=== PATIENT | male | born 1995 | race African-American/Black ===

== ENCOUNTER 2020-10-03 22:54 | Emergency (ER) | payer SELFPAY ==
[~2020-10-03] VITALS: Ht 180.3 cm; Wt 77.3 kg
[2020-10-03] MEDS ORDERED: FAMOTIDINE 20 MG/2 ML VIAL IVP ONE (23:15)
[2020-10-03] MEDS ORDERED: IV NORMAL SALINE 1000ML BAG 1,000 ML IV SCH (23:15)
[2020-10-03] MEDS ORDERED: FAMO-63 PO (23:23)
--- NOTE | 2020-10-03 23:24 | PHYS DOC ---
Past Medical History Past Medical History: Anxiety, Depression Additional Past Medical Histor: COVID 08/2019 Past Surgical History: Other Additional Past Surgical Histo: left leg Smoking Status: Current Every Day Smoker Alcohol Use: Occasionally Drug Use: Marijuana General Adult EDM: Chief Complaint: CHEST PAIN HPI: HPI: Patient is a 24 year old male presents with report of epigastric abdominal discomfort with radiation up into his chest and neck there been ongoing for the past 2 weeks. Patient does report history of anxiety and depression. Patient reports has been weaning himself off of some of his medications recently. Patient reports he has been taking [id number] [place] and stool softeners without improvement of his symptoms. Patient reports googling his symptoms and becoming concerned that he might have some serious disorder. Patient denies any trauma. Denies leg swelling or calf tenderness. Denies history of DVT/PE. Denies fever or chills. Review of Systems: Review of Systems: Constitutional: Denies fever or chills Eyes: Denies redness or eye pain HENT: Denies nasal congestion or sore throat Respiratory: Denies cough or shortness of breath Cardiovascular: Reports chest pain; denies palpitations GI: Reports epigastric abdominal pain; denies nausea or vomiting : Denies dysuria or hematuria Musculoskeletal: Denies back pain or joint pain Integument: Denies rash or skin lesions Neurologic: Denies headache, focal weakness or sensory changes Complete systems were reviewed and found to be within normal limits, except as documented in this note. Heart Score: C/O Chest Pain: Yes HEART Score for Chest Pain: HEART Score for Chest Pain Response (Comments) Value History Slighlty/Non-Suspicious 0 ECG Normal 0 Age < 45 0 Risk Factors 1 or 2 Risk Factors 1 Total 1 Risk Factors: Risk Factors: DM, Current or recent (<one month) smoker, HTN, HLP, family history of CAD, obesity. Risk Scores: Score 0 - 3: 2.5% MACE over next 6 weeks - Discharge Home Score 4 - 6: 20.3% MACE over next 6 weeks - Admit for Clinical Observation Score 7 - 10: 72.7% MACE over next 6 weeks - Early Invasive Strategies Current Medications: Current Medications Medications (Trade) Dose Ordered Sig/Abby Start Time Stop Time Status Last Admin Dose Admin Famotidine (Pepcid Vial) 20 mg 1X ONCE 10/03/20 23:15 5/8/21 23:16 DC Sodium Chloride 1,000 ml @ 1,000 mls/hr Q1H 10/03/20 23:15 10/04/20 00:14 Allergies: Allergies: Allergies Coded Allergies Type Severity Reaction Last Updated Verified No Known Drug Allergies 12/28/14 No Physical Exam: PE: Constitutional: Well developed, well nourished, no acute distress, non-toxic appearance HENT: Normocephalic, atraumatic Eyes: Conjunctiva normal, no discharge Neck: Normal range of motion, supple Lungs & Thorax: No respiratory distress, equal chest rise and fall Abdomen: Soft, mild epigastric tenderness, no guarding/rebound tenderness/distention, negative McBurney, negative Gupta's sign Skin: Warm, dry, no erythema, no rash Extremities: No tenderness, ROM intact, no edema Neurologic: Alert and oriented X 3, no focal deficits noted Psychologic: Affect anxious, judgment normal EKG: EKG: @2256 Sinus bradycardia at 56bpm, NO ST elevation, QRS 88ms, QT/QTc 364/353ms Radiology/Procedures: Radiology/Procedures: PROCEDURE: CHEST PA & LATERAL EXAM: CHEST 2 VIEWS. HISTORY: Chest pain. COMPARISON: 12/28/2014. FINDINGS: Frontal and lateral views of the chest are obtained. There are no confluent infiltrates. There is no pneumothorax or pleural effusion. The heart is not enlarged. IMPRESSION: 1. No confluent infiltrates. Electronically signed by: Isabel Gu MD (10/04/2020 12:13 AM) [facility] Course & Med Decision Making: Course & Med Decision Making Pertinent Labs and Imaging studies reviewed. (See chart for details) Patient presents with atypical chest pain. Low cardiac risk factors. Appears more epigastric in nature. Negative Gupta sign. EKG stable. Labs obtained and posted to chart. LFTs/lipase within normal limits. Troponin also within normal limits. Chest x-ray without acute process. HEART score 1. PERC negative. Patient stable for discharge with outpatient follow-up with PCP/GI. GI referral provided. Discussed findings and plan with patient, who acknowledges understanding and agreement. Fortunato Disclaimer: Fortunato Disclaimer: This electronic medical record was generated, in whole or in part, using a voice recognition dictation system. Departure Departure Impression: Primary Impression: Atypical chest pain Disposition: HOME / SELF CARE / HOMELESS Condition: STABLE Referrals: NO PCP (PCP) IRMA GUY MD Patient Instructions: Anxiety and Panic Attacks, Tdje-wy-Uytk, Chest Pain (Nonspecific), Mxsb-aq-Wfmu, Gastritis, Adult, Znrn-vq-Trhl Scripts Famotidine (PEPCID) 20 Mg Tablet 20 MG PO BID, #20 TAB Prov: RAJWINDER ZAPATA DO 10/03/20 PERC Rule for PE PERC Rule for PE PERC Rule for PE Response (Comments) Value Age > 50: No 0 HR > 100: No 0 Sa02 on room air <95%: No 0 Unilateral leg swelling: No 0 Hemoptysis: No 0 Recent surgery or trauma: No 0 Prior PE or DVT: No 0 Hormone use: No 0 Total 0 RAJWINDER ZAPATA DO October 03, 2020 23:24
[2020-10-03 23:33] LABS: BASO # 0.1 x10^3/uL (0.0-0.2); BASO % 1 % (0-3); EOS % 1 % (0-3); HEMATOCRIT 48.8 % (39.0-53.0); HEMOGLOBIN 16.8 g/dL (13.0-17.5); LYMPH # 2.1 x10^3/uL (1.0-4.8); LYMPH % 37 % (24-48); MEAN CORPUSCULAR HEMOGLOBIN 31 pg (25-35); MEAN CORPUSCULAR HGB CONC 35 g/dL (31-37); MEAN CORPUSCULAR VOLUME 91 fL (79-100); MONO # 0.6 x10^3/uL (0.0-1.1); MONO % 11 % (0-9); NEUT # 2.9 x10^3/uL (1.8-7.7); NEUT % 51 % (31-73); PLATELET COUNT 259 x10^3/uL (140-400); RED BLOOD COUNT 5.36 x10^6/uL (4.30-5.70); RED CELL DISTRIBUTION WIDTH 13.2 % (11.5-14.5); WHITE BLOOD COUNT 5.8 x10^3/uL (4.0-11.0)
[2020-10-04 00:01] LABS: CALCIUM 10.1 mg/dL (8.5-10.1); CREATININE 1.2 mg/dL (0.7-1.3); POTASSIUM 3.8 mmol/L (3.5-5.1)
[2020-10-04 00:05] LABS: ALBUMIN 4.6 g/dL (3.4-5.0); ALBUMIN/GLOBULIN RATIO 1.8 (1.0-1.7); MAGNESIUM 1.9 mg/dL (1.8-2.4); TOTAL BILIRUBIN 0.8 mg/dL (0.2-1.0); TOTAL PROTEIN 7.2 g/dL (6.4-8.2)
[2020-10-04 00:10] LABS: CREATINE KINASE 130 U/L (39-308)
--- NOTE | 2020-10-04 00:15 | RAD ---
EXAM: CHEST 2 VIEWS. HISTORY: Chest pain. COMPARISON: 12/28/2014. FINDINGS: Frontal and lateral views of the chest are obtained. There are no confluent infiltrates. There is no pneumothorax or pleural effusion. The heart is not en larged. IMPRESSION: 1. No confluent infiltrates. Electronically signed by: Isabel Gu MD (10/04/2020 12:13 AM) [facility]
[2020-10-04 00:17] VITALS: BP 141/79
--- NOTE | 2020-10-04 19:01 | EKG ---
[facility] [address] [place] [address] Test Date: 2020-10-03 Test Time: 22:56:40 Pat Name: ARNULFO TRINH Department: Room: Gender: M Commissioning Specialist: : 1995 Requested By: RAJWINDER ZAPATA Order Number: [id number] Reading MD: Measurements Intervals [place] Rate: 56 P: 63 [place]: 168 QRS: 32 QRSD: 88 T: 51 QT: 364 QTc: 353 Interpretive Statements SINUS RHYTHM OTHERWISE NORMAL ECG RI6.02 No previous ECG available for comparison
== END 2020-10-04 00:34 | disposition home or self-care (01) ==
LOC: ER 22:54
DX: R07.89 Other chest pain (principal); R10.13 Epigastric pain; F41.9 Anxiety disorder, unspecified; F32.9 Major depressive disorder, single episode, unspecified; F17.200 Nicotine dependence, unspecified, uncomplicated
CPT/HCPCS: 36415; 71046; 80053; 82553; 83690; 83735; 83880; 84484; 85025; 93005; 96361; 96374; 99285; J3490; J7030

== ENCOUNTER 2021-03-17 16:20 | Emergency (ER) | payer OTHER ==
[~2021-03-17] VITALS: Ht 182.9 cm; Wt 71.0 kg
[~2021-03-17 16:20] MED LIST: FAMO-63 PO
[2021-03-17 18:20] VITALS: BP 143/81
[2021-03-17] MEDS ORDERED: DIPH,PERTUSS(ACELL),TET VAC/PF 0.5 ML SYRINGE. VAX IM ONE (18:30)
[2021-03-17] MEDS ORDERED: LIDOCAINE 1% PF 5 ML VIAL. INJ ONE (18:30)
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
[2021-03-17] MEDS ORDERED: CEPH500C PO (19:05)
[2021-03-17] MEDS ORDERED: SULF1TAB24 PO (19:05)
[2021-03-17] MEDS ORDERED: NEOMY/BACITR/POLYMYXIN OINT PACKET. TP ONE (19:15)
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
== END 2021-03-17 19:27 | disposition home or self-care (01) ==
LOC: EEVIPCON 16:20 → ER 16:20
DX: S51.811A Laceration without foreign body of right forearm, initial encounter (principal); F17.200 Nicotine dependence, unspecified, uncomplicated; W50.3XXA Accidental bite by another person, initial encounter; Y93.89 Activity, other specified; Y92.89 Other specified places as the place of occurrence of the external cause; Y99.8 Other external cause status
CPT/HCPCS: 12001; 73090; 90471; 90715; 99283; J3490

== ENCOUNTER 2021-04-11 07:46 | Emergency (ER) | payer SELFPAY ==
[~2021-04-11] VITALS: Ht 182.9 cm; Wt 72.2 kg
[~2021-04-11 07:46] MED LIST changes: +CEPH500C PO; +SULF1TAB24 PO
[2021-04-11 08:06] VITALS: BP 150/91
--- NOTE | 2021-04-11 08:08 | PHYS DOC ---
Past Medical History Past Medical History: Anxiety, Depression Additional Past Medical Histor: COVID 08/2019 Past Surgical History: Other Additional Past Surgical Histo: left leg Smoking Status: Current Every Day Smoker Alcohol Use: None Drug Use: Marijuana General Adult EDM: Chief Complaint: ANXIETY/PANIC ATTACK HPI: HPI: 25-year-old male past medical history of anxiety, depression tobacco use, presents the ED with his mother, (patient consents to his/her/their knowledge and involvement in pts' medical care), complaints of waking up to his heart beating fast with associated dizziness and chest pain. Patient states he has been having difficulty sleeping and went to bed around 5 or 6 AM. States " I woke up thinking I was going to have a heart attack." Denies any cocaine or meth use. Does smoke tobacco. History of panic attacks and states he ran out of his prescribed medication-uncertain what this medication is. States chest pain is "subsiding," described as tightness. No personal or family history of AAA, AAD, CTD (ehlos danlos or marfans), cardiac arrhythmias (need for AICD), CAD, sudden or unexplainable (under 50 years of age or with exertion), or clotting disorders. Reports history of COVID-19 infection 6 months ago in July 2019. Is not vaccinated for Covid. Review of Systems: Review of Systems: Constitutional: Denies fever or chills. [] Eyes: Denies change in visual acuity. [] HENT: Denies nasal congestion or sore throat. [] Respiratory: Denies cough or shortness of breath. [] Cardiovascular: Denies syncope or edema GI: Denies abdominal pain, nausea, vomiting, bloody stools or diarrhea. [] : Denies dysuria hematuria Musculoskeletal: Denies back pain or joint pain. [] Integument: Denies rash or diaphoresis Neurologic: Denies headache, focal weakness or sensory changes. [] Endocrine: Denies polyuria or polydipsia. [] Lymphatic: Denies swollen glands. [] Psychiatric: Denies depression or suicidal ideations Heart Score: C/O Chest Pain: Yes HEART Score for Chest Pain: HEART Score for Chest Pain Response (Comments) Value History Slighlty/Non-Suspicious 0 ECG Normal 0 Age < 45 0 Risk Factors 1 or 2 Risk Factors 1 Troponin < Normal Limit 0 Total 1 Risk Factors: Risk Factors: DM, Current or recent (<one month) smoker, HTN, HLP, family history of CAD, obesity. Risk Scores: Score 0 - 3: 2.5% MACE over next 6 weeks - Discharge Home Score 4 - 6: 20.3% MACE over next 6 weeks - Admit for Clinical Observation Score 7 - 10: 72.7% MACE over next 6 weeks - Early Invasive Strategies Allergies: Allergies: Allergies Coded Allergies Type Severity Reaction Last Updated Verified No Known Drug Allergies 12/28/14 No Physical Exam: PE: Constitutional: Well developed, well nourished, no acute distress, non-toxic appearance. HENT: Normocephalic, atraumatic, Eyes: EOMI, conjunctiva normal, no discharge. Neck: Normal range of motion, supple, Cardiovascular: S1/2 present, regular rhythm Lungs & Thorax: Speaking in full sentences, bilateral equal chest rise, no tachypnea or increased work of breathing Abdomen: soft, no tenderness, Skin: Warm, dry, no erythema, no rash. [] Back: No tenderness, no CVA tenderness. [] Extremities: No tenderness, no cyanosis, no lower extremity edema Neurologic: Alert and oriented X 3, normal motor function, normal sensory function, no focal deficits noted. [] Psychologic: Affect normal, judgement normal, mood normal. [] EKG: EKG: Sinus rhythm 87 bpm, no axis deviation, normal intervals, no T wave inversion, no ST elevation or ST depression, concern for PACs vs u-waves Radiology/Procedures: Radiology/Procedures: IMAGING REPORT Signed PATIENT: ARNULFO TRINH LACCOUNT: [id number] : 1995 LOCATION: ER AGE: 25 SEX: M EXAM STATUS: REG ER ORD. PHYSICIAN: ALVINA ALICEA DO REASON: cp PROCEDURE: PORTABLE CHEST 1V EXAM: CHEST 1 VIEW History: Chest pain COMPARISON: 10/03/2020. TECHNIQUE: Single portable radiograph of the chest FINDINGS: The cardiac silhouette is unremarkable. The lungs are clear bilaterally. The costophrenic sulci are clear and well demarcated. IMPRESSION: No radiographic evidence of an acute cardiopulmonary process. Electronically signed by: Nas Hanley MD (04/11/2021 8:30 AM) [id number] DICTATED and SIGNED BY: NAS HANLEY MD DATE: 04/11/21 [id number] 0 Course & Med Decision Making: Course & Med Decision Making Pertinent Labs and Imaging studies reviewed. (See chart for details) Concern for atypical chest pain in a well-appearing anxious male. Leukopenia on labs, likely from Covid history. Troponin negative. D-dimer within normal limits. PERC rule negative. On re-evaluation pt with no active discomfort, reports sxs have resolved. Will discharge home with strict ED return precautions were given for suicidal homicidal ideations, hallucinations, chest pressure tightness, syncope or neurologic deficits. Encouraged urgent outpatient follow- up with PMD for routine care and psychiatry for definitive management of anxiety. Life-threatening processes were considered but are low suspicion at this time, given history, physical exam and ED workup. Pt was educated on all prescription medications and adverse effects. All patient's questions were answered and pt was stable at time of discharge. Life/limb-threatening differential includes but is not limited to, acute myocardial infarction, aortic dissection, congestive heart failure, esophageal injury including rupture, surgical abdomen, arrhythmia, cardiomyopathy, myocarditis, pericarditis, peptic ulcer disease, pneumomediastinum, pneumonia, pneumothorax, pulmonary embolus, unstable angina, rib fracture, contusion, pericardial tamponade or effusion, traumatic injury including mediastinal hemorrhage or hematoma, or pulmonary contusion. I have spoken with the patient and/or caregivers. I explained the patient's condition, diagnoses and treatment plan based on the information available to me at this time. I have answered the patient and/or caregiver's questions and addressed any concerns. The patient and/or caregivers have a good understanding of patient's diagnosis, condition and treatment plan as can be expected at this point. Vital signs have been stable. Patient's condition is stable and appropriate for discharge from the emergency department. Patient will pursue further outpatient evaluation with primary care physician or other designated or consulting physician as outlined in the discharge instructions. The patient and/or caregivers are agreeable to this plan of care and follow-up instructions have been explained in detail. The patient and/or caregivers have received these instructions in written form and have expressed an understanding of the discharge instructions. The patient and/or caregivers are aware that any significant change of condition or worsening of symptoms should prompt immediate return to this or the closest emergency department or call to 911Pilar Fortunato Disclaimer: Fortunato Disclaimer: This electronic medical record was generated, in whole or in part, using a voice recognition dictation system. Departure Departure Impression: Primary Impression: Anxiety Disposition: HOME / SELF CARE / HOMELESS Condition: STABLE Referrals: NO PCP (PCP) Follow-up with your primary care physician in 24 to 48 hours OR FOLLOW UP WITH FAMILY MEDICINE: [address] [place] [address] Patient Instructions: Anxiety and Panic Attacks Additional Instructions: FOLLOW UP WITH PSYCHIATRY: FOR DEFINITIVE MANAGEMENT of anxiety Dr. Angel Rob Psychiatry Specialist [address] [place], [place] [address] EMERGENCY DEPARTMENT GENERAL DISCHARGE INSTRUCTIONS Thank you for coming to [facility] Emergency Department (ED) today and trusting us with you care. We trust that you had a positive experience in our Emergency Department. If you wish to speak to the department management, you may call the Director at [phone]. YOUR FOLLOW UP INSTRUCTIONS ARE FOLLOWS: 1. Do you have a private Doctor? If you do not have a private doctor, please ask for a resource list of physicians or clinics that may be able to assist you with follow up care. 2. The Emergency Physicain has interpreted your x-rays. The X-Ray specialist will also review them. If there is a change in the findings, you will be notified in 48 hours when at all possible. 3. A lab test or culture has been done, your results will be reviewed and you will be notified if you need a change in treatment. ADDITIONAL INSTRUCTIONS AND INFORMATION: 1. Your care today has been supervised by a physician who is specially trained in emergency care. Many problems require more than one evaluation for a complete diagnosis and treatment. We recommend that you schedule your follow up appointment as recommended to ensure complete treatment of you illness or injury. If you are unable to obtain follow up care and continue to have a problem, or if your condition worsens, we recommend that you return to the ED. 2. We are not able to safely determine your condition over the phone nor are we able to give sound medical advice over the phone. For these safety reasons, if you call for medical advice we will ask you to come to the ED for further evaluation. 3. If you have any questions regarding these discharge instructions please call the ED at [phone]. SAFETY INFORMATION: In the interest of safety, wellness, and injury prevention; we encourage you to wear your sealbelt, if you smoke; quite smoking, and we encourage family to use a protective helmet for bicycling and other sporting events that present an increased risk for head injury. IF YOUR SYMPTOMS WORSEN OR NEW SYMPTOMS DEVELOP, OR YOU HAVE CONCERNS ABOUT YOUR CONDITION; OR IF YOUR CONDITION WORSENS WHILE YOU ARE WAITING FOR YOUR FOLLOW UP APPOINTMENT; EITHER CONTACT YOUR PRIMARY CARE DOCTOR, THE PHYSICIAN WHOSE NAME AND NUMBER YOU WERE GIVEN, OR RETURN TO THE ED IMMEDIATELY. Scripts Hydroxyzine Hcl (HYDROXYZINE HCL) 25 Mg Tablet 1 TAB PO TID PRN for ANXIETY, #30 TAB Prov: LAVINA ALIECA DO 04/11/21 ALVINA ALICEA DO Apr 11, 2021 08:08
[2021-04-11 08:29] LABS: BASO % 1 % (0-3); EOS # 0.1 x10^3/uL (0.0-0.7); EOS % 2 % (0-3); HEMOGLOBIN 15.7 g/dL (13.0-17.5); LYMPH # 1.9 x10^3/uL (1.0-4.8); LYMPH % 49 % (24-48); MEAN CORPUSCULAR HEMOGLOBIN 31 pg (25-35); MEAN CORPUSCULAR HGB CONC 34 g/dL (31-37); MEAN CORPUSCULAR VOLUME 93 fL (79-100); MONO # 0.6 x10^3/uL (0.0-1.1); MONO % 15 % (0-9); NEUT # 1.3 x10^3/uL (1.8-7.7); NEUT % 34 % (31-73); PLATELET COUNT 232 x10^3/uL (140-400); RED BLOOD COUNT 5.04 x10^6/uL (4.30-5.70); RED CELL DISTRIBUTION WIDTH 13.3 % (11.5-14.5); WHITE BLOOD COUNT 3.9 x10^3/uL (4.0-11.0)
--- NOTE | 2021-04-11 08:33 | RAD ---
EXAM: CHEST 1 VIEW History: Chest pain COMPARISON: 10/03/2020. TECHNIQUE: Single portable radiograph of the chest FINDINGS: The cardiac silhouette is unremarkable. The lungs are clear bilaterally. The costophrenic sulci are clear and well demarcated. IMPRESSION: No radiographic evidence of an acute cardiopulmonary process. Electronically signed by: Nas Hanley MD (04/11/2021 8:30 AM) [id number]
[2021-04-11 08:38] LABS: CALCIUM 8.9 mg/dL (8.5-10.1); GFR 110.2; POTASSIUM 3.8 mmol/L (3.5-5.1)
[2021-04-11 08:40] LABS: BARBITURATES NEG (NEG); BENZODIAZEPINES NEG (NEG); CANNABINOIDS NEG (NEG); COCAINE NEG (NEG); METHADONE NEG (NEG); OPIATES NEG (NEG); PHENCYCLIDINE NEG (NEG)
[2021-04-11 08:42] LABS: AMPHETAMINE/METHAMPHETAMINE NEG (NEG)
[2021-04-11 08:45] LABS: ALBUMIN 3.8 g/dL (3.4-5.0); ALBUMIN/GLOBULIN RATIO 1.1 (1.0-1.7); TOTAL BILIRUBIN 0.3 mg/dL (0.2-1.0); TOTAL PROTEIN 7.2 g/dL (6.4-8.2)
[2021-04-11] MEDS ORDERED: HYDR25TA PO (10:04)
--- NOTE | 2021-04-11 17:32 | EKG ---
[facility] [address] [place] [address] Test Date: 2021-04-11 Test Time: 08:02:47 Pat Name: ARNULFO TRINH Department: Room: Gender: M Parking Station Attendant: : 1995 Requested By: ALVINA ALICEA Order Number: [id number] Reading MD: Brennon Black MD Measurements Intervals [place] Rate: 87 P: 69 CO: 176 QRS: 24 QRSD: 94 T: 41 QT: 328 QTc: 395 Interpretive Statements SINUS RHYTHM Electronically Signed On 04-11-2021 20:19:21 [employer] by Brennon Black MD
== END 2021-04-11 10:19 | disposition home or self-care (01) ==
LOC: ER 07:46
DX: F41.9 Anxiety disorder, unspecified (principal); R42 Dizziness and giddiness; R07.89 Other chest pain; F17.200 Nicotine dependence, unspecified, uncomplicated; F32.9 Major depressive disorder, single episode, unspecified
CPT/HCPCS: 36415; 71045; 80053; 80307; 83690; 83735; 84484; 85025; 85379; 93005; 96374; 99285; J2060

== ENCOUNTER 2021-05-09 14:25 | Emergency (ER) | payer SELFPAY ==
[~2021-05-09] VITALS: Ht 182.9 cm; Wt 81.0 kg
[~2021-05-09 14:25] MED LIST changes: +HYDR25TA PO
[2021-05-09 14:38] VITALS: BP 137/75
--- NOTE | 2021-05-09 14:58 | RAD ---
EXAMINATION: Chest radiograph. VIEWS: 1 COMPARISON: 04/11/2021 INDICATION:25 years, Male, chest pain. FINDINGS: Normal cardiomediastinal silhouette. No focal consolidation. No pleural effusion or pneumothorax. No acute osseous process. IMPRESSION: No acute cardiopulmonary process. Electronically signed by: Breanna Tate MD (05/09/2021 2:55 PM) [facility]
[2021-05-09 15:27] LABS: BASO % 1 % (0-3); EOS % 1 % (0-3); HEMATOCRIT 49.8 % (39.0-53.0); LYMPH # 1.4 x10^3/uL (1.0-4.8); LYMPH % 42 % (24-48); MEAN CORPUSCULAR HEMOGLOBIN 32 pg (25-35); MEAN CORPUSCULAR HGB CONC 34 g/dL (31-37); MEAN CORPUSCULAR VOLUME 94 fL (79-100); MONO # 0.5 x10^3/uL (0.0-1.1); MONO % 15 % (0-9); NEUT # 1.4 x10^3/uL (1.8-7.7); NEUT % 42 % (31-73); PLATELET COUNT 240 x10^3/uL (140-400); RED BLOOD COUNT 5.33 x10^6/uL (4.30-5.70); RED CELL DISTRIBUTION WIDTH 13.1 % (11.5-14.5); WHITE BLOOD COUNT 3.3 x10^3/uL (4.0-11.0)
[2021-05-09 15:40] LABS: CALCIUM 9.1 mg/dL (8.5-10.1); CREATININE 1.1 mg/dL (0.7-1.3); GFR 98.7; POTASSIUM 3.6 mmol/L (3.5-5.1)
[2021-05-09 15:44] LABS: ALBUMIN 4.1 g/dL (3.4-5.0); ALBUMIN/GLOBULIN RATIO 1.2 (1.0-1.7); TOTAL PROTEIN 7.4 g/dL (6.4-8.2)
[2021-05-09] MEDS ORDERED: HYDR25TA PO (17:19)
--- NOTE | 2021-05-09 17:21 | PHYS DOC ---
Past Medical History Past Medical History: Anxiety, Depression Additional Past Medical Histor: COVID 08/2019 Past Surgical History: Other Additional Past Surgical Histo: left leg Smoking Status: Current Every Day Smoker Alcohol Use: None Drug Use: Marijuana General Adult EDM: Chief Complaint: MULTIPLE COMPLAINTS HPI: HPI: Patient is a 25-year-old male who presents to the emergency department complaining of waking up yesterday with left-sided chest pain. Patient denies radiation of left-sided chest pain, denies shortness of breath or chest congestion, denies nasal congestion recent fever or chills. Patient denies diaphoretic episodes. Patient denies syncopal or near syncopal episodes. Patient reports he thinks something is really wrong with his heart at this time. Patient reports a past medical history of anxiety and depression, reports an xiety relief with hydroxyzine medication. Reports he has not seen a primary care physician or a psychiatric physician, he only comes to the emergency department for treatment of his anxiety problems or panic attack problems. Patient reports being a cigarette smoker, denies alcohol use or illicit drug use. Denies history of illicit drug use specifically denies history of cocaine use or meth use or IV drug use. Patient denies recent fever or chills. No personal history or family history of AAA, AAD, CTD, Kirill-Danlos/Marfan's, cardiac arrhythmias or dysrhythmias, cardiac defibrillator/AICD, CAD, sudden or unexplainable under the age of 50, or clotting disorders. Denies other physical complaints or physical concerns. Review of Systems: Review of Systems: 14 body systems of review of systems have been reviewed. See HPI for pertinent positives and negative responses, otherwise all other systems are negative, nonpertinent or noncontributory. Constitutional: Negative except as outlined in HPI above. Skin: Negative except as outlined in HPI above. Eyes: Negative except as outlined in HPI above. HENT: Negative except as outlined in HPI above. Respiratory: Negative except as outlined in HPI above. Cardiovascular: Negative except as outlined in HPI above. GI: Negative except as outlined in HPI above. : Negative except as outlined in HPI above. Musculoskeletal: Negative except as outlined in HPI above. Integument: Negative except as outlined in HPI above. Neurologic: Negative except as outlined in HPI above. Endocrine: Negative except as outlined in HPI above. Lymphatic: Negative except as outlined in HPI above. Psychiatric: Negative except as outlined in HPI above. Heart Score: C/O Chest Pain: Yes HEART Score for Chest Pain: HEART Score for Chest Pain Response (Comments) Value History Slighlty/Non-Suspicious 0 ECG Normal 0 Age < 45 0 Risk Factors 1 or 2 Risk Factors 1 Troponin < Normal Limit 0 Total 1 Risk Factors: Risk Factors: DM, Current or recent (<one month) smoker, HTN, HLP, family history of CAD, obesity. Risk Scores: Score 0 - 3: 2.5% MACE over next 6 weeks - Discharge Home Score 4 - 6: 20.3% MACE over next 6 weeks - Admit for Clinical Observation Score 7 - 10: 72.7% MACE over next 6 weeks - Early Invasive Strategies Current Medications: Current Medications Medications (Trade) Dose Ordered Sig/Abyb Start Time Stop Time Status Last Admin Dose Admin Lorazepam (Ativan) 1 mg 1X ONCE 05/09/21 15:00 05/09/21 15:01 DC 05/09/21 15:30 1 MG Allergies: Allergies: Allergies Coded Allergies Type Severity Reaction Last Updated Verified No Known Drug Allergies 12/28/14 No Physical Exam: PE: Constitutional: Well developed, well nourished, no acute distress, non-toxic appearance. 25-year-old male in no apparent distress. HENT: Normocephalic, atraumatic. Eyes: Conjunctiva normal, no discharge. Neck: Normal range of motion, no stridor. Cardiovascular: No cyanosis appreciated, distal cap refill less than 2 seconds. Heart sounds S1-S2 to auscultation, RRR, Lungs & Thorax: Patient is in no respiratory distress, no audible adventitious lung sounds appreciated. Normal work of breathing, clear lung sounds with no adventitious lung sounds appreciated all lung yarbrough presentation Abdomen: Nontender, no abnormalities noted. Skin: Warm, dry, no erythema, no rash. No diaphoresis appreciated. Back: No tenderness, no deformities. Extremities: No tenderness, no cyanosis, no clubbing, ROM intact, no edema. Neurologic: Alert and oriented X 3, normal motor function, normal sensory function, no focal deficits noted. Psychologic: Affect normal, judgement normal, mood normal. Current Patient Data: Labs: Laboratory Tests Test 05/09/21 15:18 White Blood Count 3.3 x10^3/uL (4.0-11.0) L Red Blood Count 5.33 x10^6/uL (4.30-5.70) Hemoglobin 17.0 g/dL (13.0-17.5) Hematocrit 49.8 % (39.0-53.0) Mean Corpuscular Volume 94 fL (79-100) Mean Corpuscular Hemoglobin 32 pg (25-35) Mean Corpuscular Hemoglobin Concent 34 g/dL (31-37) Red Cell Distribution Width 13.1 % (11.5-14.5) Platelet Count 240 x10^3/uL (140-400) Neutrophils (%) (Auto) 42 % (31-73) Lymphocytes (%) (Auto) 42 % (24-48) Monocytes (%) (Auto) 15 % (0-9) H Eosinophils (%) (Auto) 1 % (0-3) Basophils (%) (Auto) 1 % (0-3) Neutrophils # (Auto) 1.4 x10^3/uL (1.8-7.7) L Lymphocytes # (Auto) 1.4 x10^3/uL (1.0-4.8) Monocytes # (Auto) 0.5 x10^3/uL (0.0-1.1) Eosinophils # (Auto) 0.0 x10^3/uL (0.0-0.7) Basophils # (Auto) 0.0 x10^3/uL (0.0-0.2) D-Dimer (Jaky) < 0.27 ug/mlFEU Sodium Level 138 mmol/L (136-145) Potassium Level 3.6 mmol/L (3.5-5.1) Chloride Level 102 mmol/L (98-107) Carbon Dioxide Level 28 mmol/L (21-32) Anion Gap 8 (6-14) Blood Urea Nitrogen 12 mg/dL (8-26) Creatinine 1.1 mg/dL (0.7-1.3) Estimated GFR (Cockcroft-Gault) 98.7 BUN/Creatinine Ratio 11 (6-20) Glucose Level 80 mg/dL (70-99) Calcium Level 9.1 mg/dL (8.5-10.1) Total Bilirubin 1.0 mg/dL (0.2-1.0) Aspartate Amino Transferase (AST) 23 U/L (15-37) Alanine Aminotransferase (ALT) 32 U/L (16-63) Alkaline Phosphatase 71 U/L (46-116) Troponin I High Sensitivity 4 ng/L (4-75) IZ-Ymc-P-Type Natriuretic Peptide 18 pg/mL (0-124) Total Protein 7.4 g/dL (6.4-8.2) Albumin 4.1 g/dL (3.4-5.0) Albumin/Globulin Ratio 1.2 (1.0-1.7) Laboratory Tests 05/09/21 15:18 Laboratory Tests 05/09/21 15:18 Vital Signs: Vital Signs Date Time Temp Pulse Resp B/P (MAP) Pulse Ox O2 Delivery O2 Flow Rate FiO2 05/09/21 14:38 97.8 60 16 137/75 (95) 98 Room Air 97.8 EKG: EKG: EKG performed at 1446 per ED nursing staff shows a normal sinus rhythm without other ectopy, heart rate 60 bpm, [place] interval 0.196, QTc interval 0.376, no acute STEMI, no ACS, no acute ischemia appreciated, EKG interpreted by ED attending physician Dr. Roque. Radiology/Procedures: Radiology/Procedures: REASON: n/v PROCEDURE: PORTABLE CHEST 1V XR CHEST 1V 05/09/2021 4:34 PM INDICATION: Nausea and vomiting COMPARISON: 01/17/2021 TECHNIQUE: Portable frontal view of the chest is provided. FINDINGS: The cardiomediastinal silhouette is within normal limits. Lungs are clear. There are no significant pleural effusions. There is no pulmonary vascular congestion. No pneumothorax. There is remodeling of the right proximal humerus, likely sequela of remote trau ma. IMPRESSION: There is no acute cardiopulmonary process. Electronically signed by: Tamela Carmona MD (05/09/2021 4:45 PM) [facility] Course & Med Decision Making: Course & Med Decision Making Pertinent Labs and Imaging studies reviewed. (See chart for details) 25-year-old male, reviewed, presents to the emergency department complaining of chest pain since waking up yesterday. Patient's physical examination is unremarkable. Patient does have a significant history of anxiety complaints presented to the emergency department. Patient has not followed up with outpatient care or psychiatric care. Patient's CBC unremarkable, chemistry did show carbon dioxide 39, this is most likely related to anxiety panic attack prior to arrival to the emergency department, no other concerning findings. Chest x-ray unremarkable, EKG unremarkable, cardiac enzymes to include D-dimer unremarkable, no imaging indicated for PE per PERC rule. Patient given 1 mg of Ativan p.o. during pending labs. Upon reevaluation of the patient, the patient remains in no apparent distress, reports resolution of all symptoms, denies chest pains, shortness of breath or other complaints. Patient remains nontoxic in appearance. Discussed with patient all ED examination results, follow-up with primary care, will give information for psychiatric care for follow-up, will prescribe prescription of hydroxyzine for acute anxiety, patient gave verbal understanding of and is amenable to ED discharge planning. Discussed with the patient all findings and diagnostic testing as well as the need to follow-up with their primary care provider for further evaluation and treatment or return to the ED if any new or worsening symptoms. Strict return precautions were also discussed at length, the patient voiced understanding and agreement with the discharge planning. The patient was nontoxic in appearance, in no apparent distress, and hemodynamically stable at the time of disposition. Dragon Disclaimer: [employer] Disclaimer: This electronic medical record was generated, in whole or in part, using a voice recognition dictation system. Departure Departure Impression: Primary Impression: Anxiety Disposition: 01 HOME / SELF CARE / HOMELESS Condition: GOOD Referrals: Family Medicine NO PCP (PCP) PA [facility] Patient Instructions: Anxiety and Panic Attacks Additional Instructions: You were seen in the emergency department today for chest pain. An extensive work-up was performed today, your EKG, chest x-ray, and labs did not show any concerning findings for heart attack, pneumonia, or other infectious process. As we discussed, please follow-up with a psychiatric care physician and a primary care physician for ongoing management of your symptoms. I have provided a list of area physicians and Healthcare clinics to establish primary care. I am providing you a prescription for anxiety medication, please take as directed. Return to the emergency department for worsening symptoms or other concerns. Thank you for visiting our Emergency Department. It was a pleasure taking care of you today in the emergency department and we appreciate you trusting us with your care. If any additional problems come up don't hesitate to return to visit us. Please follow up with your primary care provider so they can plan additional care if needed and know about the problem that you had. If symptoms worsen come back to the Emergency Department. Any concerning symptoms that start such as chest pain, shortness of air, weakness or numbness on one side of the body, running high fevers or any other concerning symptoms return to the ER. EMERGENCY DEPARTMENT GENERAL DISCHARGE INSTRUCTIONS Thank you for coming to [facility] Emergency Department (ED) today and trusting us with you care. We trust that you had a positive experience in our Emergency Department. If you wish to speak to the department management, you may call the Director at [phone]. YOUR FOLLOW UP INSTRUCTIONS ARE FOLLOWS: 1. Do you have a private Doctor? If you do not have a private doctor, please ask for a resource list of physicians or clinics that may be able to assist you with follow up care. 2. The Emergency Physicain has interpreted your x-rays. The X-Ray specialist will also review them. If there is a change in the findings, you will be notified in 48 hours when at all possible. 3. A lab test or culture has been done, your results will be reviewed and you will be notified if you need a change in treatment. ADDITIONAL INSTRUCTIONS AND INFORMATION: 1. Your care today has been supervised by a physician who is specially trained in emergency care. Many problems require more than one evaluation for a complete diagnosis and treatment. We recommend that you schedule your follow up appointment as recommended to ensure complete treatment of you illness or injury. If you are unable to obtain follow up care and continue to have a problem, or if your condition worsens, we recommend that you return to the ED. 2. We are not able to safely determine your condition over the phone nor are we able to give sound medical advice over the phone. For these safety reasons, if you call for medical advice we will ask you to come to the ED for further evaluation. 3. If you have any questions regarding these discharge instructions please call the ED at [phone]. SAFETY INFORMATION: In the interest of safety, wellness, and injury prevention; we encourage you to wear your sealbelt, if you smoke; quite smoking, and we encourage family to use a protective helmet for bicycling and other sporting events that present an increased risk for head injury. IF YOUR SYMPTOMS WORSEN OR NEW SYMPTOMS DEVELOP, OR YOU HAVE CONCERNS ABOUT YOUR CONDITION; OR IF YOUR CONDITION WORSENS WHILE YOU ARE WAITING FOR YOUR FOLLOW UP APPOINTMENT; EITHER CONTACT YOUR PRIMARY CARE DOCTOR, THE PHYSICIAN WHOSE NAME AND NUMBER YOU WERE GIVEN, OR RETURN TO THE ED IMMEDIATELY. Scripts Hydroxyzine Hcl (HYDROXYZINE HCL) 25 Mg Tablet 1 TAB PO TID for anxiety, #30 TAB Prov: RAJWINDER MANN APRN 05/09/21 RAJWINDER MANN APRN May 09, 2021 17:21
--- NOTE | 2021-05-09 19:23 | EKG ---
[facility] [address] [place] [address] Test Date: 2021-05-09 Test Time: 14:46:15 Pat Name: ARNULFO TRINH Department: Room: Gender: M [employer]: : 1995 Requested By: RAJWINDER MANN Order Number: [id number] Reading MD: Measurements Intervals [place] Rate: 60 P: 64 HI: 196 QRS: 55 QRSD: 92 T: 67 QT: 376 QTc: 376 Interpretive Statements SINUS RHYTHM NORMAL ECG RI6.02 No previous ECG available for comparison
== END 2021-05-09 17:41 | disposition home or self-care (01) ==
LOC: ER 14:25
DX: F41.9 Anxiety disorder, unspecified (principal); R07.89 Other chest pain; F32.9 Major depressive disorder, single episode, unspecified; I10 Essential (primary) hypertension; F17.200 Nicotine dependence, unspecified, uncomplicated
CPT/HCPCS: 36415; 71045; 80053; 83880; 84484; 85025; 85379; 93005; 99285-25

== ENCOUNTER 2021-05-13 20:10 | Emergency (ER) | payer SELFPAY ==
[~2021-05-13] VITALS: Ht 182.9 cm; Wt 82.0 kg
[2021-05-13] MEDS ORDERED: LIDO:MAALOX 1:1 20 ML SINGLE DOSE. SWSW ONE (22:00)
[2021-05-13] MEDS ORDERED: ONDANSETRON ODT 4 MG TAB.RAPDIS. PO ONE (22:00)
--- NOTE | 2021-05-13 22:16 | PHYS DOC ---
Past Medical History Past Medical History: Anxiety, Depression Additional Past Medical Histor: COVID 08/2019 Past Surgical History: Other Additional Past Surgical Histo: left leg Smoking Status: Heavy Tobacco Smoker Alcohol Use: None Drug Use: Marijuana General Adult EDM: Chief Complaint: ABDOMINAL PAIN HPI: HPI: Patient is a 25-year-old male who presents emergency department concerning right knee pain after tripping and falling onto his right knee yesterday. Patient also reports eating some [employer] pizza this afternoon and noticed some nausea and vomiting afterwards, reports he vomited up food did appear to be the pizza particles, vomited 4 times, did have some abdominal discomfort but now feels some mild stiffness in upper abdominal area. Is unable to articulate a pain scale saying that it does not hurt it does feel stiff. Denies diarrhea or constipation. Denies recent fever or chills. Reports he feels he might have come in contact with someone that has the COVID-19 virus, denies receiving the COVID-19 virus series, wishes to be asked for the COVID-19 virus today. Patient denies chest pains, shortness of breath, chest or nasal congestion, recent fever or chills. Patient denies other physical complaints or physical concerns. Review of Systems: Review of Systems: 14 body systems of review of systems have been reviewed. See HPI for pertinent positives and negative responses, otherwise all other systems are negative, nonpertinent or noncontributory. Constitutional: Negative except as outlined in HPI above. Skin: Negative except as outlined in HPI above. Eyes: Negative except as outlined in HPI above. HENT: Negative except as outlined in HPI above. Respiratory: Negative except as outlined in HPI above. Cardiovascular: Negative except as outlined in HPI above. GI: Negative except as outlined in HPI above. : Negative except as outlined in HPI above. Musculoskeletal: Negative except as outlined in HPI above. Integument: Negative except as outlined in HPI above. Neurologic: Negative except as outlined in HPI above. Endocrine: Negative except as outlined in HPI above. Lymphatic: Negative except as outlined in HPI above. Psychiatric: Negative except as outlined in HPI above. Heart Score: C/O Chest Pain: No Risk Factors: Risk Factors: DM, Current or recent (<one month) smoker, HTN, HLP, family history of CAD, obesity. Risk Scores: Score 0 - 3: 2.5% MACE over next 6 weeks - Discharge Home Score 4 - 6: 20.3% MACE over next 6 weeks - Admit for Clinical Observation Score 7 - 10: 72.7% MACE over next 6 weeks - Early Invasive Strategies Current Medications: Current Medications Medications (Trade) Dose Ordered Sig/Abby Start Time Stop Time Status Last Admin Dose Admin Multi-Ingredient Mouthwash/Gargle (Gi Cocktail) 20 ml 1X ONCE 05/13/21 22:00 05/13/21 22:01 DC Ondansetron HCl (Zofran Odt) 4 mg 1X ONCE 05/13/21 22:00 05/13/21 22:01 DC 05/13/21 21:58 4 MG Allergies: Allergies: Allergies Coded Allergies Type Severity Reaction Last Updated Verified No Known Drug Allergies 05/13/21 No Physical Exam: PE: Constitutional: Well developed, well nourished, no acute distress, non-toxic appearance. 25-year-old male in no apparent distress. HENT: Normocephalic, atraumatic. Eyes: Conjunctiva normal, no discharge. Neck: Normal range of motion, no stridor. Cardiovascular: No cyanosis appreciated, distal cap refill less than 2 seconds. Lungs & Thorax: Patient is in no respiratory distress, no audible adventitious lung sounds appreciated. Abdomen: Nontender, no abnormalities noted. Skin: Warm, dry, no erythema, no rash. Back: No tenderness, no deformities. Extremities: No tenderness, no cyanosis, no clubbing, ROM intact, no edema. Except for right knee, pain to palpation over patella aspect, satisfactory knee stability tests, distal cap refill less than 2 seconds, 2+ dorsalis pedis pulses bilaterally, no swelling, no crepitus, 5/5 strength of knees bilaterally, full passive range of motion to knee joint of the right without eliciting pain. Neurologic: Alert and oriented X 3, normal motor function, normal sensory function, no focal deficits noted. Psychologic: Affect normal, judgement normal, mood normal. Current Patient Data: Vital Signs: Vital Signs Date Time Temp Pulse Resp B/P (MAP) Pulse Ox O2 Delivery O2 Flow Rate FiO2 05/13/21 21:15 97.9 72 16 146/66 (92) 100 Room Air 97.9 EKG: EKG: [] Radiology/Procedures: Radiology/Procedures: REASON: Right knee pain after fall PROCEDURE: KNEE RIGHT 4V EXAM: AP, lateral, tangential patellar and oblique views of the right knee DATE: 05/13/2021 9:51 PM INDICATION: Reason: Right knee pain after fall / Spl. Instructions: / History: COMPARISON: No Prior FINDINGS: No acute fracture or dislocation. No joint effusion. Joint spaces are preserved without significant degenerative/proliferative change. Neutral patellar tracking. IMPRESSION: No acute fracture or dislocation. Electronically signed by: Benito Angel MD (05/13/2021 10:13 PM) [facility] Course & Med Decision Making: Course & Med Decision Making Pertinent Labs and Imaging studies reviewed. (See chart for details) 25-year-old male, vital signs reviewed, presents to the emergency department concerning nausea and vomiting after eating pizza today. Patient also has concerns for right knee pain after falling on knee 2 days ago. Physical examination is unremarkable, will order x-ray of right knee related to patient's concerns, will Covid test related to patient's concerns for Covid contact, will order Zofran for nausea along with GI cocktail for complaints of dyspepsia. Patient's rapid Covid test negative, PCR pending, patient reports pain relief from medications given. Discussed with patient discomfort most likely dyspepsia, will apply Aaron wrap to right knee for right knee contusion, follow-up with primary care soon, return to ER precautions and concerns, patient gave verbal understanding of and is amenable to ED discharge planning. Fortunato Disclaimer: F[employer] Disclaimer: This electronic medical record was generated, in whole or in part, using a voice recognition dictation system. Departure Departure Impression: Primary Impression: Contusion of right knee Qualified Codes: S80.01XA - Contusion of right knee, initial encounter Additional Impression: Dyspepsia Disposition: HOME / SELF CARE / HOMELESS Condition: GOOD Referrals: NO PCP (PCP) Patient Instructions: Contusion, Indigestion Additional Instructions: You were seen today in the emergency department for abdominal discomfort with nausea and vomiting along with right knee pain after a fall. The x-ray of your knee did not show any broken bones or bone injury, an Aaron wrap has been applied to assist with stability during the healing process of this contusion. Your rapid Covid test is negative, you found relief with the nausea medication and oral indigestion medication given in the emergency department today. Please use the Aaron wrap as directed, follow-up with your primary care doctor for ongoing pain management. Return to the emergency department for worsening symptoms or other concerns. Thank you for visiting our Emergency Department. It was a pleasure taking care of you today in the emergency department and we appreciate you trusting us with your care. If any additional problems come up don't hesitate to return to visit us. Please follow up with your primary care provider so they can plan additional care if needed and know about the problem that you had. If symptoms worsen come back to the Emergency Department. Any concerning symptoms that start such as chest pain, shortness of air, weakness or numbness on one side of the body, running high fevers or any other concerning symptoms return to the ER. EMERGENCY DEPARTMENT GENERAL DISCHARGE INSTRUCTIONS Thank you for coming to [facility] Emergency Department (ED) today and trusting us with you care. We trust that you had a positive experience in our Emergency Department. If you wish to speak to the department management, you may call the Director at [phone]. YOUR FOLLOW UP INSTRUCTIONS ARE FOLLOWS: 1. Do you have a private Doctor? If you do not have a private doctor, please ask for a resource list of physicians or clinics that may be able to assist you with follow up care. 2. The Emergency Physicain has interpreted your x-rays. The X-Ray specialist w ill also review them. If there is a change in the findings, you will be notified in 48 hours when at all possible. 3. A lab test or culture has been done, your results will be reviewed and you will be notified if you need a change in treatment. ADDITIONAL INSTRUCTIONS AND INFORMATION: 1. Your care today has been supervised by a physician who is specially trained in emergency care. Many problems require more than one evaluation for a complete diagnosis and treatment. We recommend that you schedule your follow up appointment as recommended to ensure complete treatment of you illness or injury. If you are unable to obtain follow up care and continue to have a problem, or if your condition worsens, we recommend that you return to the ED. 2. We are not able to safely determine your condition over the phone nor are we able to give sound medical advice over the phone. For these safety reasons, if you call for medical advice we will ask you to come to the ED for further evaluation. 3. If you have any questions regarding these discharge instructions please call the ED at [phone]. SAFETY INFORMATION: In the interest of safety, wellness, and injury prevention; we encourage you to wear your sealbelt, if you smoke; quite smoking, and we encourage family to use a protective helmet for bicycling and other sporting events that present an increased risk for head injury. IF YOUR SYMPTOMS WORSEN OR NEW SYMPTOMS DEVELOP, OR YOU HAVE CONCERNS ABOUT YOUR CONDITION; OR IF YOUR CONDITION WORSENS WHILE YOU ARE WAITING FOR YOUR FOLLOW UP APPOINTMENT; EITHER CONTACT YOUR PRIMARY CARE DOCTOR, THE PHYSICIAN WHOSE NAME AND NUMBER YOU WERE GIVEN, OR RETURN TO THE ED IMMEDIATELY. RAJWINDER MANN APRN May 13, 2021 22:16
[2021-05-13 22:45] VITALS: BP 109/59
--- NOTE | 2021-05-14 15:36 | NUR ---
IP: Attempted to contact pt concerning covid results. No answer, left a voicemail to return the call.
== END 2021-05-13 22:48 | disposition home or self-care (01) ==
LOC: ER 20:10
DX: S80.01XA Contusion of right knee, initial encounter (principal); Z20.822 Contact with and (suspected) exposure to COVID-19; Z72.0 Tobacco use; R10.13 Epigastric pain; W01.0XXA Fall on same level from slipping, tripping and stumbling without subsequent striking against object, initial encounter; Y93.89 Activity, other specified; Y92.89 Other specified places as the place of occurrence of the external cause; Y99.8 Other external cause status
CPT/HCPCS: 73564; 87426; 99284; U0003; U0005

== ENCOUNTER 2021-05-27 20:27 | Emergency (ER) | payer SELFPAY ==
[~2021-05-27] VITALS: Ht 182.9 cm; Wt 81.8 kg
--- NOTE | 2021-05-27 21:17 | PHYS DOC ---
Past Medical History Past Medical History: Anxiety, Depression Additional Past Medical Histor: COVID 08/2019 Past Surgical History: Other Additional Past Surgical Histo: left leg Smoking Status: Heavy Tobacco Smoker Alcohol Use: None Drug Use: Marijuana General Adult EDM: Chief Complaint: SORE THROAT HPI: HPI: Patient is a 25-year-old male being seen in the emergency department for sore throat that started last night with body aches. Patient denies any cough, fevers, shortness of breath, nausea, vomiting, loss of taste or smell or sick contacts. Patient's vital signs are stable and he is in no acute distress. Review of Systems: Review of Systems: 14 body systems of the review of systems have been reviewed. See HPI for pertinent positive and negative responses, otherwise all other systems are negative, nonpertinent or noncontributory Heart Score: C/O Chest Pain: N/A Risk Factors: Risk Factors: DM, Current or recent (<one month) smoker, HTN, HLP, family history of CAD, obesity. Risk Scores: Score 0 - 3: 2.5% MACE over next 6 weeks - Discharge Home Score 4 - 6: 20.3% MACE over next 6 weeks - Admit for Clinical Observation Score 7 - 10: 72.7% MACE over next 6 weeks - Early Invasive Strategies Allergies: Allergies: Allergies Coded Allergies Type Severity Reaction Last Updated Verified No Known Drug Allergies 05/13/21 No Physical Exam: PE: Constitutional: Well developed, well nourished, no acute distress, non-toxic appearance. [] HENT: Normocephalic, atraumatic, bilateral external ears normal, oropharynx moist, postnasal drainage, oropharyngeal erythema, no tonsillar enlargement or exudate, uvula midline, no trismus, no phonation changes, no oral exudates, nose normal. [] Eyes: PERRL, EOMI, conjunctiva normal, no discharge. [] Neck: Normal range of motion, no tenderness, supple, no stridor. [] Cardiovascular:Heart rate regular rhythm, no murmur [] Lungs & Thorax: Bilateral breath sounds clear to auscultation [] Abdomen: Bowel sounds normal, soft, no tenderness, no masses, no pulsatile masses. [] Skin: Warm, dry, no erythema, no rash. [] Back: Normal range of motion Extremities: No tenderness, no cyanosis, no clubbing, ROM intact, no edema. [] Neurologic: Alert and oriented X 3, normal motor function, normal sensory function, no focal deficits noted. [] Psychologic: Affect normal, judgement normal, mood normal. [] EKG: EKG: [] Radiology/Procedures: Radiology/Procedures: [] Course & Med Decision Making: Course & Med Decision Making Pertinent Labs and Imaging studies reviewed. (See chart for details) Patient is seen in the emergency department for sore throat that started last night with body aches. Patient will be tested for influenza, Covid and strep. Rapid influenza test was negative, rapid strep test was negative, rapid covid negative. Patient educated on symptomatic treatment. Patient vital signs are stable and he is in no acute distress. My MDM discharge Fortunato Disclaimer: Fortunato Disclaimer: This electronic medical record was generated, in whole or in part, using a voice recognition dictation system. Departure Departure Impression: Primary Impression: Sore throat Disposition: HOME / SELF CARE / HOMELESS Condition: GOOD Referrals: NO PCP (PCP) Patient Instructions: Sore Throat Additional Instructions: You were seen in the emergency department today for sore throat. Your rapid influenza, strep and Covid test was negative. We will confirm your negative rapid Covid test with a Covid PCR test and you will be called with those results in approximately 1 to 2 days. I would self isolate until you receive that PCR result. Perform symptomatic treatment such as Tylenol and/or ibuprofen for your pain, warm salt water gargles for your sore throat. Follow-up with your primary care provider tomorrow regarding your ER visit. Please return to the emergency department if you develop worsening of your sore throat, inability to swallow or maintaining your secretions, shortness of breath, chest pain, intractable nausea or vomiting, high fevers refractory to treatment. KIMBERLY ROSALES MUSIC EXECUTIVE May 27, 2021 21:17
[2021-05-27 21:46] LABS: INFLUENZA A PATIENT NEGATIVE (NEGATIVE); INFLUENZA B PATIENT NEGATIVE (NEGATIVE)
[2021-05-27 21:49] VITALS: BP 131/74
--- NOTE | 2021-05-28 14:41 | NUR ---
IP: Attempted to contact pt concerning covid results. No answer, left a voicemail to return the call.
== END 2021-05-27 22:06 | disposition home or self-care (01) ==
LOC: ER 20:27
DX: J02.9 Acute pharyngitis, unspecified (principal); Z20.822 Contact with and (suspected) exposure to COVID-19; M79.10 Myalgia, unspecified site; Z72.0 Tobacco use
CPT/HCPCS: 87070; 87426; 87804; 87880; 99283; U0003; U0005

== ENCOUNTER 2021-07-19 12:09 | Emergency (ER) | payer SELFPAY ==
[~2021-07-19] VITALS: Ht 182.9 cm; Wt 76.7 kg
[2021-07-19 12:50] VITALS: BP 118/64
--- NOTE | 2021-07-19 12:50 | PHYS DOC ---
Past Medical History Past Medical History: Anxiety, Depression Additional Past Medical Histor: COVID 08/2019 Past Surgical History: Other Additional Past Surgical Histo: left leg Smoking Status: Never Smoker Alcohol Use: None Drug Use: Marijuana General Adult EDM: Chief Complaint: NECK PAIN HPI: HPI: Patient is a 25 year old male who presents with feeling a lymph node that is nontender on his side of his neck bilaterally. He states he has noticed it for the last 4 days. He is here today to find out if he has cancer as he has been googling. Patient denies pain, fevers, throat pain, ear pain, recent illness, nasal congestion, cold sweats, chills, abdominal pain, nausea, vomiting, diarrhea, headache, dizziness, fatigue, focal weakness, numbness or tingling, chest pain, shortness of air. He has a history of depression and anxiety. Review of Systems: Review of Systems: Constitutional: Denies fever or chills. [] Eyes: Denies change in visual acuity. [] HENT: Denies nasal congestion or sore throat. + Lymph node in his neck [] Respiratory: Denies cough or shortness of breath. [] Cardiovascular: Denies chest pain or edema. [] GI: Denies abdominal pain, nausea, vomiting, bloody stools or diarrhea. [] : Denies dysuria. [] Musculoskeletal: Denies back pain or joint pain. [] Integument: Denies rash. [] Neurologic: Denies headache, focal weakness or sensory changes. [] Endocrine: Denies polyuria or polydipsia. [] Lymphatic: Denies swollen glands. [] Psychiatric: Denies depression or anxiety. [] Heart Score: C/O Chest Pain: No Allergies: Allergies: Allergies Coded Allergies Type Severity Reaction Last Updated Verified No Known Drug Allergies 05/13/21 No Physical Exam: PE: Constitutional: Well developed, well nourished, no acute distress, non-toxic appearance. [] HENT: Normocephalic, atraumatic, bilateral external ears normal, oropharynx moist, no oral exudates, nose normal. [] Eyes: PERRLA, EOMI, conjunctiva normal, no discharge. [] Neck: Normal range of motion, no tenderness, supple, no stridor. Bilateral small, nontender, non-movable lymph nodes to posterior neck. [] Cardiovascular:Heart rate regular rhythm, no murmur [] Lungs & Thorax: Bilateral breath sounds clear to auscultation [] Abdomen: Bowel sounds normal, soft, no tenderness, no masses, no pulsatile masses. [] Skin: Warm, dry, no erythema, no rash. [] Back: No tenderness, no CVA tenderness. [] Extremities: No tenderness, no cyanosis, no clubbing, ROM intact, no edema. [] Neurologic: Alert and oriented X 3, normal motor function, normal sensory function, no focal deficits noted. [] Psychologic: Affect normal, judgement normal, mood normal. [] Current Patient Data: Vital Signs: Vital Signs Date Time Temp Pulse Resp B/P (MAP) Pulse Ox O2 Delivery O2 Flow Rate FiO2 07/19/21 12:13 98.1 78 16 164/79 (107) 98 Room Air 98.1 EKG: EKG: [] Radiology/Procedures: Radiology/Procedures: [] Course & Med Decision Making: Course & Med Decision Making Pertinent Labs and Imaging studies reviewed. (See chart for details) See HPI. Patient is alert and oriented x4. Ambulatory steady gait. Speaks in full clear sentences. Patient has 2 very small nonmovable, nontender nonreddened bilateral posterior neck lymph nodes. Throat is pink without exudates or swelling. No trismus. Uvula midline. Lungs are clear all station all lobes. Lungs are clear to all station all lobes. Skin pink warm and dry. Vital signs within normal limits. Bilateral tympanic's are white without effusion. No nasal congestion. Patient has no nuchal rigidity or neck pain. Patient was offered blood work and he is is refusing blood work today as he states he was at [facility] and had blood work 2 days ago. States he does not have a primary care provider. [] Dragon Disclaimer: Dragon Disclaimer: This electronic medical record was generated, in whole or in part, using a voice recognition dictation system. Departure Departure Impression: Primary Impression: Lymph node enlargement Disposition: HOME / SELF CARE / HOMELESS Condition: STABLE Referrals: NO PCP (PCP) Patient Instructions: Medical Screening Exam Additional Instructions: Follow-up with primary care provider as soon as possible. Drink plenty of fluids. Take any ibuprofen for any kind of pain you may have. If anything worsen she can always come back to the ED. GARY ANDERSON APRN Jul 19, 2021 12:50
== END 2021-07-19 12:54 | disposition home or self-care (01) ==
LOC: ER 12:09
DX: R59.9 Enlarged lymph nodes, unspecified (principal); F41.9 Anxiety disorder, unspecified; F32.9 Major depressive disorder, single episode, unspecified
CPT/HCPCS: 99282